=== PATIENT | male | born 1990 | race African-American/Black ===

== ENCOUNTER 2022-06-23 18:53 | Emergency (ER) | payer BC ==
[~2022-06-23] VITALS: Ht 193 cm; Wt 91.0 kg
[2022-06-23] MEDS ORDERED: MORPHINE SULFATE 4 MG/ML CPJ (NOT FOR IM USE) IV STA (19:20)
[2022-06-23] MEDS ORDERED: PROPOFOL 200MG/20ML VIAL IV ONE (20:30)
[2022-06-24] MEDS ORDERED: KETOROLAC 15MG/ML VIAL IV ONE
[2022-06-24] MEDS ORDERED: NAPR500T7 MT (00:16)
[2022-06-24 01:04] VITALS: BP 118/71
== END 2022-06-24 01:37 | disposition home or self-care (01) ==
LOC: ER 18:53
DX: S43.084A Other dislocation of right shoulder joint, initial encounter (principal); I10 Essential (primary) hypertension; Z21 Asymptomatic human immunodeficiency virus [HIV] infection status; X50.9XXA Other and unspecified overexertion or strenuous movements or postures, initial encounter; Y93.89 Activity, other specified; Y92.018 Other place in single-family (private) house as the place of occurrence of the external cause
CPT/HCPCS: 23650; 73030; 96374; 96375; 99285; J1885; J2270; J2704; Z7610; A4565; L3670